=== PATIENT | male | born 1995 | race Caucasian/White ===

== ENCOUNTER 2017-05-12 23:48 | Emergency (ER) | payer OTHER ==
[~2017-05-12] VITALS: Ht 175.3 cm; Wt 88.5 kg
[~2017-05-12 23:48] MED LIST: AZITTAB PO
[2017-05-12 23:57] VITALS: Ht 175.3 cm; Wt 88.5 kg
[2017-05-13] MEDS ORDERED: XYLOCAINE 1%/SOD BICARB 20 ML VIAL INFIL ONE (00:24)
[2017-05-13] MEDS ORDERED: DIPHTHERIA/TETANUS/PERTUSSIS 0.5 ML SYR/VIAL IM. ONE (01:00)
[2017-05-13 01:10] VITALS: BP 134/60; PULSE 74; TEMP 36.7; O2SAT 96
--- NOTE | 2017-05-13 05:00 | EMERGENCY ROOM VISIT NOTE ---
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 The bleeding has not stopped. Denies weakness or numbness of the finger or hand. The patient has full range of motion of the fingers. The patient rates the pain as mild and 3/10. The patient denies any other injuries. The patient's tetanus shot is not up to date. REVIEW OF SYSTEMS: A 6 system review of systems was completed with positives and pertinent negatives listed in the HPI. ALLERGIES: none MEDICATIONS: none PMH: none SOCIAL HISTORY: No drug use PHYSICAL EXAM: Vital Signs: Reviewed Nurse's notes, vital signs stable. GENERAL : Pleasant male, in no acute distress, well developed, well nourished. SKIN: There is a to cm long laceration on the palm of the right hand and a 3 cm long laceration on the palmar aspect of the right middle finger. The edges gape apart with traction. There is no foreign material in the wound and it looks clean. There is bleeding. No deep structures such as tendons, bones, or significant blood vessels are seen in the base of the wounds. Extension and flexion of the finger is full and strong. Full range of motion of the wrist and other fingers. Capillary refill less than 2 seconds. Normal sensation to light and sharp touch. EMERGENCY DEPARTMENT COURSE: I examined the patient. Hand x-ray with no acute fracture, dislocation or foreign body per my interpretation. Location: hand Total length: 2cm Complexity: simple Verbal consent was obtained after the risks and benefits were explained, including but not limited to bleeding, scarring, infection, pain, and bone/joint /nerve damage. At this time, the risks of the procedure are less than the risks of NOT performing the procedure. A time out was taken and the correct patient and site identified. The skin was prepped with betadine. The target area was anesthetized with 2 ml of 1% lidocaine without epinephrine. Copious irrigation was performed using NSS. The skin was re-prepped with betadine and a sterile field set. The wound was explored for foreign bodies and none found. Examination revealed no injury to deep structures such as tendons, bone, or significant blood vessels. Debridement was not performed. The wound edges were approximated using 4, 4-0 simple interrupted nylon sutures. Hemostasis and excellent approximation was achieved. Antibacterial ointment and a sterile dressing applied. Detailed wound care instructions and signs and symptoms of infection reviewed with the pt. No complications and the patient tolerated the procedure well. Using sterile technique the wound was cleansed with Betadine. 2 ml of 1% buffered lidocaine was used to perform a digital block to anesthetize the patient. The area was sterilely draped. Once the patient was anesthetized, the wound was copiously irrigated under pressure with sterile saline. The wound was explored and there were no deep structures injured. The laceration was repaired using 8 simple interrupted 5-0 nylon sutures. The patient tolerated the procedure well. Hemostasis was achieved. The area was cleaned with sterile saline and dressed with bacitracin ointment and bandage. The patient was given a tetanus booster. The patient was discharged home in good condition. Differential diagnosis includes laceration, tendon injury, vascular injury, fracture and other etiologies were considered. DIAGNOSIS: #1 right hand laceration #2 right middle finger laceration #3 work- related injury DISCHARGE INSTRUCTIONS & TREATMENT: As below Current/Historical Medications No Active Prescriptions or Reported Meds Allergies Coded Allergies: Sulfamethoxazole w/Trimethoprim (Verified Allergy, Intermediate, hives, 05/13/17) Vital Signs Date Time Temp Pulse Resp B/P (MAP) Pulse Ox O2 Delivery O2 Flow Rate FiO2 05/13/17 01:10 36.7 74 18 134/60 96 Room Air 05/12/17 23:57 36.9 115 18 120/70 94 Room Air Medications Administered Medications (Trade) Dose Ordered Sig/Leta Route Start Time Stop Time Status Last Admin Dose Admin Diphtheria/ Pertussis/Tetanus Vacc (Adacel Inj) 0.5 ml ONCE ONCE IM. 05/13/17 01:00 05/13/17 01:01 DC 05/13/17 01:01 0.5 ML Departure Information Impression Primary Impression: Finger laceration Additional Impressions: Hand laceration Work related injury Dispostion Home / Self-Care Condition GOOD Prescriptions No Active Prescriptions or Reported Meds Forms HOME CARE DOCUMENTATION FORM, Work Instructions, Additional Instructions: Light duty for 2 weeks. IMPORTANT VISIT INFORMATION Patient Instructions [facility], ED Laceration All Additional Instructions Keep wound clean and dry. Do not allow any crusting or dried blood to accumulate on sutures. If this occurs, use a 1:1 solution of hydrogen peroxide/ water on a Q-tip to clean the wound. Use an antibiotic ointment for 3-4 days, then let wound dry. Suture removal in 10-12 days. Return sooner for any signs of infection (increasing redness, swelling, drainage). Ice and elevate for swelling and pain. Ibuprofen 600 mg and Tylenol 1000 mg every 6 hrs for pain. Keep covered when in sun until sutures removed then SPF 50 or higher for one year. Vitamin E oil if desired two weeks after suture removal for reduction of scar Work Instructions Additional Work Instructions: Light duty for 2 weeks. Problem Qualifiers
--- NOTE | 2017-05-13 07:40 | DIAGNOSTIC IMAGING REPORT ---
RIGHT HAND 2 VIEWS CLINICAL HISTORY: Laceration. FINDINGS: AP and lateral views of the right hand are obtained. No prior studies are available for comparison at the time of dictation. The skeletal structures are well mineralized. No fracture is identified. The joint spaces of the hand are preserved. Mild soft tissue swelling is suggested in the third digit. No radiodense foreign body is identified. IMPRESSION: 1. No acute bony abnormality is identified. 2. No radiodense foreign body is seen. Electronically signed by: Brent Kay M.D. 05/13/2017 7:39 AM Dictated Date/Time: 05/13/2017 7:38 AM
== END 2017-05-13 01:39 | disposition home or self-care (01) ==
LOC: C.EDB 23:49 → C.EDC 05-13 01:39
DX: S61.212A Laceration without foreign body of right middle finger without damage to nail, initial encounter (principal); S61.411A Laceration without foreign body of right hand, initial encounter; W45.8XXA Other foreign body or object entering through skin, initial encounter; Y99.0 Civilian activity done for income or pay; Z23 Encounter for immunization; Z88.2 Allergy status to sulfonamides

== ENCOUNTER → 2017-05-24 | Outpatient (CLI) | payer OTHER ==
--- NOTE | 2017-05-24 12:57 | DIAGNOSTIC IMAGING REPORT ---
CHEST 2 VIEWS ROUTINE CLINICAL HISTORY: Asthma exacerbation COMPARISON STUDY: 01/24/2008 FINDINGS: The heart is normal in size. There is a new right upper lobe paramediastinal opacity. Given the age of the patient this may represent a focal pneumonia. Clinical follow-up is recommended. Repeat imaging subsequent to treatment is recommended, as the chest x-ray findings are nonspecific. IMPRESSION: 1. New right upper lobe paramediastinal opacity. Although nonspecific, given the age of the patient this likely represents a focal pneumonia. Repeat imaging subsequent to treatment is recommended as the chest x-ray findings are nonspecific. Electronically signed by: Js Guerra M.D. 05/24/2017 12:56 PM Dictated Date/Time: 05/24/2017 12:53 PM
== END | disposition home or self-care (01) ==
LOC: C.RAD 12:33
PROVIDERS: ATTEND Family Medicine
DX: J45.901 Unspecified asthma with (acute) exacerbation (principal); R91.8 Other nonspecific abnormal finding of lung field

== ENCOUNTER → 2017-06-16 | Outpatient (CLI) | payer OTHER ==
--- NOTE | 2017-06-16 13:06 | DIAGNOSTIC IMAGING REPORT ---
CHEST 2 VIEWS ROUTINE CLINICAL HISTORY: PNEUMONIA COMPARISON STUDY: 05/24/2017 FINDINGS: The cardiac and mediastinal contours are normal. There is no evidence of focal pulmonary consolidation. There is no evidence of failure. No pleural effusions are visualized.[ There has been interval resolution of the right upper lobe paramediastinal opacity. This suggests interval resolution of a pneumonia. IMPRESSION: No active disease in the chest. Electronically signed by: Js Guerra M.D. 06/16/2017 1:05 PM Dictated Date/Time: 06/16/2017 1:04 PM
== END | disposition home or self-care (01) ==
LOC: C.RAD 12:11
PROVIDERS: ATTEND Family Medicine
DX: J18.9 Pneumonia, unspecified organism (principal)